=== PATIENT | female | born 1950 | race Caucasian/White ===

== ENCOUNTER → 2022-01-31 11:04 | Outpatient (BNVA) | payer MEDICARE, MEDICAID, SELFPAY | PROVIDERS: PCP Internal Medicine; Visit Provider Psychiatry & Neurology Neurology | DX: G25.0 Essential tremor (principal); G25.2 Other specified forms of tremor | CPT/HCPCS: 99212 ==

== ENCOUNTER 2022-07-02 13:14 | Outpatient (REF) | payer MEDICARE, MEDICAID, SELFPAY ==
--- NOTE | ~2022-07-02 | XR_ITS ---
EXAMINATION: XR CHEST CLINICAL INFORMATION: Pneumonia COMPARISON: None available. TECHNIQUE: 2 views of the chest were obtained. FINDINGS: The cardiac silhouette does not appear enlarged. There is question of prominence of the ascending thoracic aorta on the lateral view. Hilar and mediastinal contours are otherwise unremarkable. The lungs are clear. No pleural effusion or pneumothorax. Old L1 compression fracture. Degenerative changes of the thoracic spine. XR/XR chest 2V IMPRESSION: No evidence of pneumonia. Old L1 compression fracture. Question of prominence of the ascending thoracic aorta seen on the lateral view.
== END 2022-07-02 13:15 | disposition home or self-care (01) ==
LOC: HO.XRAY 13:14
PROVIDERS: PCP Internal Medicine; Visit Provider Hospitalist
DX: J18.9 Pneumonia, unspecified organism (principal); J98.6 Disorders of diaphragm
CPT/HCPCS: 71046; 99202

== ENCOUNTER → 2022-09-04 14:06 | Outpatient (BNVA) | payer MEDICARE, MEDICAID, SELFPAY | PROVIDERS: PCP Internal Medicine; Visit Provider Hospitalist | DX: J18.9 Pneumonia, unspecified organism (principal); J98.6 Disorders of diaphragm; Z87.891 Personal history of nicotine dependence; Z87.81 Personal history of (healed) traumatic fracture; Z86.16 Personal history of COVID-19 | CPT/HCPCS: 99212 ==

== ENCOUNTER 2022-10-02 12:41 | Outpatient (REF) | payer MEDICARE, MEDICAID, SELFPAY ==
--- NOTE | ~2022-10-02 | CT_ITS ---
EXAMINATION: CT CHEST WITHOUT CONTRAST CLINICAL INFORMATION: Pneumonia. COMPARISON: Previous chest x-ray June 2022. TECHNIQUE: Multidetector volumetric CT imaging of the chest was done. Axial MIP volume rendering provided. Sagittal and coronal reformatted images were obtained. This CT examination was performed using dose optimization techniques as appropriate, variously including the following: *Automated exposure control *Adjustment of mA and/or kV according to patient size (this includes techniques or standardized protocols for targeted exams where dose is matched to indication/reason for exam; i.e. extremities or head) *Use of iterative reconstruction technique. DLP: 187 mGy-cm FINDINGS: LUNGS: There are scattered subtle areas of increased peripheral interstitial markings with interlobular septal thickening and some increased attenuation. This is seen diffusely throughout the lungs but greatest at the lung bases. There is mild bilateral lower lobe traction bronchiolectasis. No honeycombing. It is uncertain whether this represents evidence of early interstitial lung disease or is related to acute infiltrate. There are small bilateral lower lobe calcified nodules or parenchymal calcifications, largest measuring 3 mm in the right lower lobe, axial image 301 series 5. MEDIASTINUM: Slightly dilated ascending thoracic aorta measuring 4.4 x 4.4 cm. The aortic arch and descending thoracic aorta are normal in caliber. Descending thoracic aorta is tortuous. Normal heart size. No pericardial effusion. No enlarged hilar or mediastinal lymph nodes. CORONARY ARTERY CALCIFICATION: Mild. PLEURA: There is no pleural effusion. No pleural mass or thickening. AXILLA: No lymphadenopathy. UPPER ABDOMEN: Bilateral renal cysts . No imaging follow up recommended. 1 cm splenic lesion probably representing a cyst. OSSEOUS STRUCTURES: Degenerative changes of the spine. Old L1 compression fracture unchanged. CT/CT chest wo IV con IMPRESSION: Interstitial disease, question ILD vs acute interstitial pneumonia. 4.4 cm aneurysm of the ascending thoracic aorta. Fleischner guidelines were followed. 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
== END 2022-10-02 12:42 | disposition home or self-care (01) ==
LOC: HO.CT 12:41
PROVIDERS: PCP Internal Medicine; Visit Provider Hospitalist
DX: J18.9 Pneumonia, unspecified organism (principal)
CPT/HCPCS: 71250

== ENCOUNTER 2022-11-08 13:43 | Outpatient (AMB) | payer MEDICARE, MEDICAID, SELFPAY ==
[2022-11-08 13:47] VITALS: BP 136/68; PULSE 65; O2SAT 99; BMI 21.2
--- NOTE | 2022-11-08 13:47 | MHC.OFFVIS ---
Intake Vital Signs 11/08/22 13:47 Height 5 ft 7 in Weight 135 lb 9.349 oz BMI 21.2 BP 136/68 Blood Pressure Location Lt brachial Position Sitting Pulse 65 Pulse Source Pulse Oximeter Pulse Oximetry (%) 99 Oxygen Delivery Method Room Air Intake Visit Reasons: Abnormal CT scan Allergies No Known Allergies Allergy (Verified 11/08/22 13:49) HPI HPI Comments History of Present Illness Details The patient is a 72 year woman who was in her usual state health until sometime in March she started developing a he viral syndrome. She did test positive for COVID-19. At that time she had a chest x-ray demonstrating basilar changes primarily at the left side. The patient did recover from COVID. About a month later the patient started developing worsening cough with yellow phlegm and congestion. Also complained of some shortness of breath. She had a repeat chest x-ray demonstrating what appeared to have elevations of the right hemidiaphragm with airspace disease causing some degree of atelectasis and elevation of the diaphragm. She was given antibiotics at the time. The patient now feels better. Now she is recovering after having hip surgery. She denies any worsening productive cough. Clinically the patient's feel better. After the visit the patient did have a repeat chest x-ray which I personally reviewed. Start a slight elevation of the right hemidiaphragm which is minimal. No further evidence of any atelectasis or airspace disease in the right hemithorax. 09/04/2022 the patient is here for pulmonary follow-up visit. Overall the patient is feeling well. She never got the Acapella valve she ended up getting a nebulizer started. I explained to her that it was probably a mistake on the prescription. I did reach out to the [employer] to take in a changes. The patient has been feeling good otherwise. Denies any significant chest congestion. I did review her chest x-ray that she had back in June demonstrating some minimal interstitial changes at the bases but nothing significant. Although, on exam she still has significant log crackles coarse crackles at the right base. Therefore based on her ongoing abnormal findings will go ahead and request a CT scan of the chest to better address that area. 11/08/2022 the patient is here for pulmonary follow-up visit. Overall she is doing well. Denies any significant cough or shortness of breath. Denies any chest discomfort. The patient did undergo a CT scan of the chest which we personally reviewed. Appears that she has basilar interstitial changes consistent with his interstitial lung disease. It appears this may be related to her significant COVID infection that she had initially. Although, need to consider the possibility of IPF. No significant honeycombing at this point. Will continue monitoring for any progression of disease. She will come back in 6 months with PFTs and will plan to repeat the CT scan a year's time. [facility] Medical History (Updated 11/08/22 @ 14:06 by Janes Rivero MD) Ascending aortic aneurysm Atrial fibrillation Depression Diabetes Elevated diaphragm HTN (hypertension) Hyperlipidemia ILD (interstitial lung disease) Pneumonia Surgical History H/O gastric sleeve History of hip replacement, total History of laparoscopic cholecystectomy Previous section Total knee replacement status Social History Alcohol intake: never Patient Tobacco Use Status: Former Tobacco user Quit Date: Review of Systems Const Denies fever(s) Eyes Denies change in vision ENT Denies nasal congestion Card Denies chest pain and Reports dyspnea on exertion Resp Denies chest congestion, Reports cough and Reports dyspnea on exertion GI Reports no additional complaints Musc Reports as per HPI, Reports arthralgias and Reports limited range of motion Skin/Breast Denies rash Neuro Reports no additional complaints Johnny/Lymph Denies lymphadenopathy Physical Exam Vital Signs: Last Vital Signs Pulse 65 11/08/22 13:47 BP 136/68 11/08/22 13:47 Pulse Ox 99 11/08/22 13:47 Oxygen Delivery Method Room Air 11/08/22 13:47 BMI result Body Mass Index 21.2 Const General: comfortable HEENT Head: Yes normocephalic Neck Neck: Yes supple Chest Chest palpation & inspection: normal inspection of the chest Resp Effort & Inspection: normal respiratory effort Auscultation: crackles bilateral at the base Cardio Rate: regular rate Rhythm: regular rhythm Heart sounds: S1 normal heart sound present and S2 normal heart sound present GI Palpation (GI): Soft to palpation Skin General skin exam: no rashes or lesions noted Extrem General: Yes no clubbing, cyanosis or edema Results Reviewed Results Reviewed: [address] [address] [address] Scan Report Signed Patient: Nieves Arthur MR#: [id number] : 1950 Acct:[id number] Age/Sex: 71 / F ADM Date: 10/02/22 Loc: HO.CT Attending Dr: Janes Rivero MD Ordering Physician: Janes Rivero MD Date of Service: 10/02/22 Procedure(s): CT chest wo IV con Accession Number(s): [id number] cc: Janes Rivero MD~ EXAMINATION: CT CHEST WITHOUT CONTRAST CLINICAL INFORMATION: Pneumonia.? COMPARISON: Previous chest x-ray June 2022. TECHNIQUE: Multidetector volumetric CT imaging of the chest was done. Axial MIP volume rendering provided. Sagittal and coronal reformatted images were obtained.? This CT examination was performed using dose optimization techniques as appropriate, variously including the following: *Automated exposure control *Adjustment of mA and/or kV according to patient size (this includes techniques or standardized protocols for targeted exams where dose is matched to indication/reason for exam; i.e. extremities or head) *Use of iterative reconstruction technique. DLP: 187 mGy-cm FINDINGS: LUNGS: There are scattered subtle areas of increased peripheral interstitial markings with interlobular septal thickening and some increased attenuation. This is seen diffusely throughout the lungs but greatest at the lung bases. There is mild bilateral lower lobe traction bronchiolectasis. No honeycombing. It is uncertain whether this represents evidence of early interstitial lung disease or is related to acute infiltrate. There are small bilateral lower lobe calcified nodules or parenchymal calcifications, largest measuring 3 mm in the right lower lobe, axial image 301 series 5. MEDIASTINUM: Slightly dilated ascending thoracic aorta measuring 4.4 x 4.4 cm. The aortic arch and descending thoracic aorta are normal in caliber. Descending thoracic aorta is tortuous. Normal heart size. No pericardial effusion. No enlarged hilar or mediastinal lymph nodes. CORONARY ARTERY CALCIFICATION: Mild. PLEURA: There is no pleural effusion. No pleural mass or thickening.? AXILLA: No lymphadenopathy.? UPPER ABDOMEN: Bilateral renal cysts . No imaging follow up recommended. 1 cm splenic lesion probably representing a cyst. OSSEOUS STRUCTURES: Degenerative changes of the spine. Old L1 compression fracture unchanged. CT/CT chest wo IV con IMPRESSION: Interstitial disease, question ILD vs acute interstitial pneumonia. 4.4 cm aneurysm of the ascending thoracic aorta. ? Fleischner guidelines were followed. ? 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 Medical Support Assistant: ALLEN Assessment & Plan Assessment & Plan (1) Elevated diaphragm: Code(s): J98.6 - Disorders of diaphragm (2) ILD (interstitial lung disease): Code(s): J84.9 - Interstitial pulmonary disease, unspecified Plan CPT with acapella valve PFTs in [address] chest in 1 yr F/U 6 months Orders: Orders PFT pulmonary function test Today J84.9 - Interstitial pulmonary disease, unspecified Coding Level of Care Code Est Pt Level 4 (70309) Diagnoses Elevated diaphragm J98.6 ILD (interstitial lung disease) J84.9 Time Spent (min) 19
== END 2022-11-08 14:08 | disposition home or self-care (01) ==
PROVIDERS: PCP Internal Medicine; Visit Provider Hospitalist
DX: J98.6 Disorders of diaphragm (principal); J84.9 Interstitial pulmonary disease, unspecified
CPT/HCPCS: 99214

== ENCOUNTER → 2022-11-08 13:43 | Outpatient (BNVA) | payer MEDICARE, MEDICAID, SELFPAY | PROVIDERS: PCP Internal Medicine; Visit Provider Hospitalist | DX: J98.6 Disorders of diaphragm (principal); J84.9 Interstitial pulmonary disease, unspecified | CPT/HCPCS: 99212 ==